=== PATIENT | female | born 1990 | race Caucasian/White ===

== ENCOUNTER 2020-09-24 18:29 | Outpatient (CLI) | payer BC, SELFPAY ==
[2020-09-24 18:36] VITALS: BP 124/60; PULSE 89; TEMP 36.1
--- NOTE | 2020-09-24 18:43 | PC.NURSE ---
At patient bedside adjusting positioning and gauze to hold pressure by patient's position. Instructed patient not to remove gauze for 20 minutes, and nurse would be back at that time to evaluate bleeding. When repositioning patient to high fowlers, bleeding seems slower than first assessment. During the first assessment, blood was a slow trickle. During the second assessment, blood was not flowing.
[2020-09-24 18:48] VITALS: BMI 25.9
== END 2020-09-24 19:24 | disposition home or self-care (01) ==
LOC: OPOB 18:31 → OBGYN 18:32
PROVIDERS: Visit Provider Family Medicine
DX: O26.899 Other specified pregnancy related conditions, unspecified trimester (principal); Z3A.00 Weeks of gestation of pregnancy not specified; I83.899 Varicose veins of unspecified lower extremity with other complications
CPT/HCPCS: 99211

== ENCOUNTER 2020-11-18 00:05 | Outpatient (CLI) | payer BC, SELFPAY ==
[2020-11-18 00:15] VITALS: BMI 32.0
[2020-11-18 00:33] VITALS: BP 117/72; PULSE 91
[2020-11-18 00:37] VITALS: TEMP 36.4
[2020-11-18 00:48] VITALS: BP 120/73; PULSE 78
[2020-11-18 01:03] VITALS: BP 108/58; PULSE 73
[2020-11-18 01:19] VITALS: BP 108/63; PULSE 69
[2020-11-18 01:49] VITALS: BP 123/77; PULSE 84
== END 2020-11-18 01:59 | disposition home or self-care (01) ==
LOC: OPOB 00:25 → OBGYN 00:29
PROVIDERS: Visit Provider Family Medicine
DX: O26.899 Other specified pregnancy related conditions, unspecified trimester (principal); Z3A.00 Weeks of gestation of pregnancy not specified; R10.9 Unspecified abdominal pain
CPT/HCPCS: 59025; 99211

== ENCOUNTER 2020-11-18 18:32 | Inpatient (IN) | payer BC, SELFPAY ==
[2020-11-18] VITALS (42 sets, daily range): BP systolic 98–132; BP diastolic 55–78; PULSE 65–99; RESP 15–18; TEMP 36.3–36.6; O2SAT 85–100; BMI 29.0
[2020-11-18 18:41] LABS: Nitrazine Paper, PH Negative
[2020-11-18] MEDS: lactated ringers 1,000 ML 999 ML IV (19:00)
[2020-11-18 19:25] LABS: Basophils % 0.2 %; Eosinophils % 0.4 %; Hematocrit 38.8 % (37.0-47.0); Hemoglobin 12.5 g/dL (11.5-15.3); Lymphocytes # 1.1 10^3/uL (0.8-4.8); Lymphocytes % 12.1 %; Mean Corpuscular HGB Conc 32.2 g/dL (30.0-36.0); Mean Corpuscular Hemoglobin 29.6 pg (28.0-34.0); Mean Corpuscular Volume 91.9 fL (81-99); Mean Platelet Volume 11.1 fL (7.4-10.4); Monocytes # 0.7 10^3/uL (0.2-0.9); Neutrophils # 7.37 10^3/uL (1.8-7.7); Neutrophils % 79.7 %; Nucleated Red Blood Cells % 0 %; Platelet Count 191 10^3/cmm (130-400); Red Blood Count 4.22 10^6/uL (4.1-5.3); Red Cell Distribution Width 13.4 % (12.1-15.1); White Blood Count 9.3 10^3/uL (4.0-10.0)
--- NOTE | 2020-11-18 20:15 | P.ANESASSM_ITS ---
Pre-Anesthetic Assessment Pre-Anesthetic Assessment: Height/Weight: Height 1.7 m Weight 83.915 kg Temp Pulse BP Pulse Ox 97.3 F L 86 118/66 100 11/18/20 18:15 11/18/20 20:41 11/18/20 20:41 11/18/20 20:41 Preop Diagnosis: IUP Proposed Procedure: LABOR EPIDURAL Was Beta Ruby taken within 24 hours: N/A Was Clonidine taken within 24 hours: N/A Social: Social History: No alcohol and No tobacco Exam: Pre-Anes Outpt Exam: alert, oriented x 3, clear to auscultation bilaterally and regular rate & rhythm Airway: Submandibular: WNL Cervical ROM: WNL MP: 1 History/ROS: No significant history except as noted Pulmonary: Pulmonary: None reported CV/HEM: CV/HEM: None reported : : None reported Hepatic: Hepatic: None reported GI: GI: None reported Metabolic: Metabolic: None reported Musc/skel: Musc/skel: None reported Neuropsych: Neuropsych: None reported Anesthetic Plan: ASA status: 1 Anesthesia: Anesthesia Evaluation Risk of > 500 ml blood loss (7ml/kg in children): No Meds/Allergies Current Medications: Current Medications Generic Name Dose Route Start Last Admin Trade Name Freq PRN Reason Stop Dose Admin Ropivacaine 200 mg in 100 mls @ 13 mls/hr 11/18/20 19:17 11/18/20 20:25 Naropin Premix EPIDURAL 13 mls/hr .[id number] PRN Administration ANESTHESIA Data Anesthesia CBC & Chem 7: 11/18/20 19:07 Other Labs: Laboratory Results - last 48 hr 11/18/20 19:07 WBC 9.3 RBC 4.22 Hgb 12.5 Hct 38.8 MCV 91.9 MCH 29.6 MCHC 32.2 RDW 13.4 Plt Count 191 MPV 11.1 H Neut % (Auto) 79.7 Lymph % (Auto) 12.1 [place] % (Auto) 7.0 Eos % (Auto) 0.4 Baso % (Auto) 0.2 Neut # (Auto) 7.37 Lymph # (Auto) 1.1 [place] # (Auto) 0.7 Eos # (Auto) 0.0 Baso # (Auto) 0.0 Nucleated RBC % (auto) 0 Nucleated RBCs # 0.0 Cardiac Studies: No Data to Display
--- NOTE | 2020-11-18 20:48 | ANES.PROC ---
Anesthesia Procedures Procedure/Date: 11/18/20 Epidural: Time Out Performed: Yes Consents Signed: Procedure Consent Consent: requested by attending/covering physician Lumbar Level: L4-L5 Epidural position: sitting Epidural procedure: sterile prep of area, 1% lidocaine to numb the area, 18 g needle, negative for paresthesia passed, neg for paresthesia, test dose given, 1.5% xylocaine 1:200k epi (5ML), placed PCEA, no systemic response, sterile dressing applied, L.U.D. no apparent complications and 0.2% Ropiavacaine @ mls/hr (13)
--- NOTE | 2020-11-18 21:27 | PC.NURSE ---
BRYN HARRELL BOX STAPLER BACK INTO ROOM TO ASSIT US WITH PAIN CONTROL, EPIDURAL CATH PULLED BACK WITH STERILE TECHNIQUE AND RETAPED, BOLIS GIVEN.
--- NOTE | 2020-11-18 21:29 | ANES.PROC ---
Anesthesia Procedures Procedure/Date: 11/18/20 Procedure Narrative: called to patient BS. states she is having pain on the Left side, complete relief on the Right side. catheter pulled back. cervical check was 6cm before intervention. Fentanyl 100mcg given per epidural.
[2020-11-18] MEDS: oxytocin 30 UNIT/500 ML BAG 600 UNIT IV (22:33)
--- NOTE | 2020-11-18 23:04 | P.PCNOB_ITS ---
Delivery Note: Date of delivery: November 18, 2020 Delivery: This is a 30-year-old G3, P1 at 38 weeks 5 days gestation who was admitted in active labor. She received an epidural for pain management. Her labor progressed well on its own. She had spontaneous rupture of membranes less than 1 hour prior to delivery with what appeared to be clear fluid but minimal. She had a normal spontaneous vaginal delivery of a viable female infant weight 7 pounds 0 ounces Apgars 6 and 7 , over an intact perineum. The infant was suctioned at delivery and placed on mother's chest. The cord was clamped and cut. The placenta was delivered grossly intact and normal to inspection. There was a small first-degree perineal laceration that was sutured using 3-0 chromic. Mother was doing well after delivery. Coding Level of Care Code Acute [employer] for Ilia Carrasco
[2020-11-19] VITALS (9 sets, daily range): BP systolic 105–120; BP diastolic 63–75; PULSE 70–87; RESP 16–18; TEMP 36.6–36.9; O2SAT 96–99
[2020-11-19] MEDS: lanolin oint 7 gm 1 APPLIC TOPICAL (01:48)
[2020-11-19] MEDS: benzocaine-menthol 78 gm Canister 1 SPRAY TOPICAL ×2 (01:48→10:20)
[2020-11-19] MEDS: acetaminophen 325 mg Tablet 650 MG PO (02:47)
[2020-11-19] MEDS: ibuprofen 800 mg tablet PO ×3 (10:20→22:26)
[2020-11-19] MEDS: prenatal vitamin Capsule 1 CAP PO (10:20)
[2020-11-19] MEDS: docusate sodium 100 mg Capsule PO ×2 (10:20→19:42)
[2020-11-19 14:14] LABS: Hematocrit 32.5 % (37.0-47.0); Hemoglobin 10.2 g/dL (11.5-15.3); Mean Corpuscular HGB Conc 31.4 g/dL (30.0-36.0); Mean Corpuscular Hemoglobin 29.5 pg (28.0-34.0); Mean Corpuscular Volume 93.9 fL (81-99); Mean Platelet Volume 11.1 fL (7.4-10.4); Platelet Count 161 10^3/cmm (130-400); Red Blood Count 3.46 10^6/uL (4.1-5.3); Red Cell Distribution Width 13.4 % (12.1-15.1); White Blood Count 8.1 10^3/uL (4.0-10.0)
--- NOTE | 2020-11-19 19:18 | PM.PN ---
Subjective Subjective: Interval history: Doing well. Her vaginal bleeding is decreasing. She is ambulating, tolerating a regular diet, has no pain. Vitals/I&O/Wt Last Vital Signs Temp 98.0 F 11/19/20 16:32 Pulse 72 11/19/20 16:32 Resp 18 11/19/20 16:32 BP 109/75 11/19/20 16:32 Pulse Ox 99 11/19/20 16:32 11/19/20 11/19/20 11/19/20 06:59 14:59 22:59 Intake Total 1600 / 1600 Balance 1600 / 1600 Weight last 48 hrs Weight 185 lb Weight 185 lb Physical Exam Const: COMMON NORMALS: no acute distress GENERAL APPEARANCE: cooperative and comfortable HENMT: COMMON NORMALS: normocephalic and atraumatic HEAD & SCALP: normocephalic and atraumatic FACE & SINUS: normal facial exam Resp: COMMON NORMALS: normal respiratory effort and clear to auscultation bilaterally EFFORT & INSPECTION: Yes able to speak in complete sentences AUSCULTATION: clear to auscultation bilaterally Cardio: COMMON NORMALS: regular rate and regular rhythm RATE: regular rate RHYTHM: regular rhythm GI: COMMON NORMALS: Soft to palpation (Fundus firm U- 2) INSPECTION: Yes normal to inspection PALPATION: Yes Soft to palpation (Fundus firm U- 2), No Tenderness to palpation present (GI), No Guarding due to palpation present (GI) and No Rigid due to palpation Extremity: GENERAL: No calf tenderness and No edema Urinary Catheter Management^: Olson: Cath Placed During This Visit: yes, but has since been removed by the nurse Reason for Continuing Indwelling Catheter: Other Urinary Catheter Date of Insertion: 11/18/20 Urinary Catheter Time of Insertion: 20:45 Date Urinary Catheter Removed: 11/19/20 Time Urinary Catheter Discontinued: 22:10 Data : 11/19/20 13:50 A&P Assessment and plan (1) Normal spontaneous vaginal delivery: Continue routine care. If doing well likely discharge home tomorrow Status: Acute Attestations Medical Necessity Statement*: Routine care Coding Level of Care Code Acute [employer] Community [employer] Coordinator for Lianeg Fwd Diagnoses Normal spontaneous vaginal delivery O80
[2020-11-20 04:48] VITALS: BP 121/64; PULSE 78; RESP 16; TEMP 36.7
[2020-11-20 09:10] VITALS: BP 113/74; PULSE 80; RESP 16; TEMP 36.4
[2020-11-20] MEDS: prenatal vitamin Capsule 1 CAP PO (09:10)
[2020-11-20] MEDS: ibuprofen 800 mg tablet PO (09:10)
[2020-11-20] MEDS: docusate sodium 100 mg Capsule PO (09:10)
--- NOTE | 2020-11-20 13:29 | P.DS_ITS ---
Discharge Providers Date of Admission: 11/18/20 18:32 Date of Discharge: November 20, 2020 Attending Provider at Admission: Mady Hills MD Attending Provider at Discharge: Mday Hills MD Diagnoses at Discharge Discharge Diagnosis (1) Normal spontaneous vaginal delivery: Status: Acute Reason for Visit Reason for Visit: Abdominal pain Hospital Course Hospital Course This is a 30-year-old G3,now P2 who was admitted in active labor. She had a normal spontaneous vaginal delivery of a viable female . Mother did well after delivery. She was ambulating, tolerating a regular diet, had decreased vaginal bleeding and was comfortable with discharge home. Physical Exam Const: COMMON NORMALS: no acute distress and patient oriented x3 HENMT: COMMON NORMALS: normocephalic HEAD & SCALP: normocephalic FACE & SINUS: normal facial exam Resp: COMMON NORMALS: normal respiratory effort and No use of accessory muscles GI: COMMON NORMALS: Soft to palpation (Fundus firm U- 2), non-tender and No hepatosplenomegaly present PALPATION: Yes Soft to palpation (Fundus firm U- 2) and Yes No hepatosplenomegaly present Extremity: COMMON NORMALS: no calf tenderness and no pedal edema Neuro: COMMON NORMALS: patient oriented x3 Urinary Catheter Management^: Olson: Cath Placed During This Visit: yes, but has since been removed by the nurse Reason for Continuing Indwelling Catheter: Other Urinary Catheter Date of Insertion: 11/18/20 Urinary Catheter Time of Insertion: 20:45 Date Urinary Catheter Removed: 11/19/20 Time Urinary Catheter Discontinued: 22:10 Discharge Data 2 Data Completed and Pending: Labs from last 24 hours 11/19/20 13:50 WBC 8.1 RBC 3.46 L Hgb 10.2 L Hct 32.5 L MCV 93.9 MCH 29.5 MCHC 31.4 RDW 13.4 Plt Count 161 MPV 11.1 H Vitals: Last Vital Signs Temp 97.5 F L 11/20/20 09:10 Pulse 80 11/20/20 09:10 Resp 16 11/20/20 09:10 BP 113/74 11/20/20 09:10 Pulse Ox 99 11/19/20 16:32 Discharge Plan Discharge Patient Disposition: Home Condition: Stable Prescriptions: Continued cetirizine [Zyrtec] 5 mg Tablet 5 mg PO DAILY PRN (Reason: Allergy Symptoms) RF: 0 1 mg Tablet 1 tab PO DAILY RF: 0 Vitamin C RF: 0 fluoxetine 20 mg PO DAILY RF: 0 Discharge Orders: Discharge Order (Routine); Ordered 11/20/20 Ordered By: Mady Hills Referrals: Mady Hills MD [Physician] - 12/16/20 1:45 pm (Your 4 week post- appointment is scheduled with for 12/16/20 at 1:45. ) Discharge Diet: Usual diet Discharge Activity: Limit activity as instructed Patient Instructions: Vitamins (By mouth), Your Baby (DC), Pre-eclampsia and Eclampsia (DC), Bleeding (DC), OB Discharge Report, OB Food/Drug Interaction Guide, OB Proud Parent Packet, OB Vaginal Deliveries, Abnormal Bleeding Discharge Attestations Time Spent in Discharge Care*: less than 30 min Quality Metrics Clinical Quality Measures During this hospital stay, did patient experience: None Coding Level of Care Code Acute Chg FW DC note Diagnoses Normal spontaneous vaginal delivery O80
[2020-11-20 13:36] VITALS: BP 114/74; PULSE 73; RESP 16; TEMP 36.5
[2020-11-20 13:37] VITALS: BP 114/74; PULSE 73; RESP 16; TEMP 36.5
== END 2020-11-20 13:55 | disposition home or self-care (01) | DRG 807 ==
LOC: OPOB 18:33 → OBGYN 18:33
PROVIDERS: Admitting Provider Family Medicine; Visit Provider Family Medicine
DX: O70.0 First degree perineal laceration during delivery (principal); Z37.0 Single live birth; Z3A.38 38 weeks gestation of pregnancy
CPT/HCPCS: 36415; 51702; 59025; 59409; 83986; 85025; 85027; 99211; J2795; J3010